=== PATIENT | female | born 1945 | race Caucasian/White ===

== ENCOUNTER 2019-11-09 09:17 | Emergency (ER) | payer OTHER ==
[~2019-11-09] VITALS: Ht 1 cm; Wt 0.5 kg
[~2019-11-09 09:17] MED LIST: BENA10TA84; HYDR-4833 PO; LORA1TAB12; VICODIN
[2019-11-09] MEDS ORDERED: SODIUM BICARBONATE 8.4% INJ 50ML SYRINGE IV ONE (09:18)
[2019-11-09] MEDS ORDERED: DEXTROSE (50%) 50ML SYRG IV ONE (09:18)
[2019-11-09] MEDS ORDERED: EPINEPHrine HCL 1 MG/10 ML SYRG IV ONE (09:18)
[2019-11-09] MEDS ORDERED: CALCIUM CHLOR(10%) 100MG/ML 10ML SYRINGE IV ONE (09:18)
[2019-11-09 09:23] VITALS: BP 0/0
== END 2019-11-09 17:12 | disposition home or self-care (01) ==
LOC: ER 09:17 → EDBD 09:17 → ER 17:12
DX: I46.9 Cardiac arrest, cause unspecified (principal); I10 Essential (primary) hypertension; Z88.0 Allergy status to penicillin; Z88.2 Allergy status to sulfonamides
CPT/HCPCS: 31500; 92950; 99285; J0171; J7042